=== PATIENT | male | born 1930 | race Caucasian/White ===

== ENCOUNTER 2017-06-12 10:19 | Emergency (ER) | payer BC ==
[2017-06-12 10:43] VITALS: RESP 18; TEMP 97.9
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
[2017-06-12 12:24] VITALS: BP 142/85; PULSE 82; O2SAT 93
== END 2017-06-12 12:24 | disposition home or self-care (01) ==
LOC: EDUNIT#
DX: S09.90XA Unspecified injury of head, initial encounter (principal); S00.01XA Abrasion of scalp, initial encounter; Z86.59 Personal history of other mental and behavioral disorders; W01.198A Fall on same level from slipping, tripping and stumbling with subsequent striking against other object, initial encounter; Y92.89 Other specified places as the place of occurrence of the external cause; Y93.01 Activity, walking, marching and hiking

== ENCOUNTER 2018-06-03 01:49 | Emergency (ER) | payer BC, OTHER ==
[2018-06-03] MEDS ORDERED: NS 1,000 ML IV ONE (02:12)
--- NOTE | 2018-06-03 02:20 | EDPHY ---
H & P Stated Complaint: NVD Time Seen by Provider: 06/03/18 01:56 HPI/ROS: HPI The patient presents with nausea, vomiting, diarrhea which began just after dinner at about 6:00 p.m. Tonight. The patient was feeling well during the day , is here with his daughter who was with him and said he was acting himself. He then developed vomiting which was nonbloody and nonbilious after eating. He had another episode later in the night which was accompanied by diarrhea at approximately 11:00 p.m.. He had fecal incontinence. There was a small amount of red blood, however the rest of it was soft and brown. He has not had any fevers or chills. He does not have any abdominal pain. He resides at a correction where there may be some other residents who have a similar set of symptoms. REVIEW OF SYSTEMS 10 systems were reviewed and negative with the exception of the elements mentioned in the history of present illness. 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 PHYSICAL General Appearance: Alert, no distress Eyes: Pupils equal and round no pallor or injection ENT, Mouth: Mucous membranes dry Respiratory: There are no retractions, lungs are clear to auscultation Cardiovascular: Regular rate and rhythm Gastrointestinal: Abdomen is soft and non-tender, no masses, bowel sounds normal Neurological: A&O, moves all extremities Skin: Warm and dry, no rashes Musculoskeletal: Neck is supple non tender Extremities: symmetrical, full range of motion Psychiatric: Patient is oriented X 3, there is no agitation Source: Patient, Family Exam Limitations: Physical impairment - Personal History Current Tetanus Diphtheria and Acellular Pertussis (TDAP): Yes - Medical/Surgical History Hx Asthma: No Hx Chronic Respiratory Disease: No Hx Diabetes: No Hx Cardiac Disease: No Hx Renal Disease: No Hx Cirrhosis: No Hx Alcoholism: No Hx HIV/AIDS: No Hx Splenectomy or Spleen Trauma: No Other PMH: hypothyroid,dementia,bleeding disorder,arthritis - Social History Smoking Status: Never smoked Constitutional: Initial Vital Signs Temperature (C) 37 C 06/03/18 01:54 Heart Rate 115 H 06/03/18 01:54 Respiratory Rate 16 06/03/18 01:54 Blood Pressure 174/98 H 06/03/18 01:54 O2 Sat (%) 88 L 06/03/18 01:54 O2 Delivery Mode Room Air O2 (L/minute) 2 Allergies/Adverse Reactions: Penicillins Allergy (Verified 06/03/18 01:54) horse serum Allergy (Uncoded 06/03/18 01:54) Home Medications: Medication Instructions Recorded Alendronate Sodium [Fosamax 70 MG 70 mg PO SA@0700 01/03/16 (*)] Levothyroxine [Synthroid 88 mcg 88 mcg PO DAILY06 01/03/16 (*)] Acetaminophen [Tylenol 325mg (*)] 650 mg PO Q4HRS PRN tab 11/12/17 Herbals/Supplements -Info Only 1 ea PO DAILY 11/12/17 Ondansetron Odt [Zofran Odt 4 mg 4 mg PO Q4 PRN #10 tab 06/03/18 (*)] Medical Decision Making - Diagnostics Imaging Results: Chest x-ray two view demonstrates mild cardiomegaly with what appears to be atelectasis at both lung bases, interpreted by me, radiology interpretation is pending. Imaging: I viewed and interpreted images myself Differential Diagnosis: 88-year-old man with dementia who presents brought in by ambulance from a correction with several hours of nausea, vomiting, diarrhea. Here, he is slightly tachycardic as well as slightly hypoxic. His abdominal exam is benign though he does appear clinically dehydrated. Differential diagnosis includes viral gastroenteritis, toxin mediated enterocolitis, electrolyte disturbance, dehydration, less likely appendicitis. Plan for IV fluids, basic labs, chest x-ray given his hypoxia. The patient was given 1 L of IV fluids and was able to tolerate p.o. Challenge without difficulty. Basic labs were mostly unremarkable with slightly elevated BUN of 27. Platelets are slightly low at 110. I performed a rectal exam which demonstrated small amount of brown colored stool with no bleeding or masses palpated. Chest x-ray demonstrates cardiomegaly. I do not have an old chest x-ray for comparison. Daughter knows that the patient has seen a tester operator helper sometime in the past. I have offered him admission to the hospital and further testing, however he and his daughter both decline. The patient has a MOST form with him stating that he is DNR with limited interventions, because of this, if it is his wish to return home, I feel this is reasonable. I will send him home with Zofran. I have given instructions for [facility] for ongoing treatment. I suspect he has a gastroenteritis accompanied by dehydration. I did discuss the patient's hypoxia with his daughter. I explained that he may be a candidate for supplemental oxygen and this will need to be followed up. She says that he would not want to carry oxygen with him most likely, however he may benefit from this at night. - Data Points Laboratory Results: Laboratory Results 06/03/18 01:58 06/03/18 01:58 Medications Given: Discontinued Medications Sodium Chloride (Ns) 1,000 mls @ 0 mls/hr IV ONCE ONE; Wide Open PRN Reason: Protocol Stop: 06/03/18 02:13 Last Admin: 06/03/18 02:14 Dose: 1,000 mls Departure - Departure Disposition: Home, Routine, Self-Care Clinical Impression: Nausea vomiting and diarrhea, Hypoxia Condition: Fair Instructions: Dehydration (ED), Acute Nausea and Vomiting (ED) Additional Instructions: I recommend that he take clear liquids until he is feeling better. He can use Zofran 1 tab every 4-6 hours as needed for nausea and vomiting. It was noted on today's visit that patient's oxygen level was about 88% on room air. If he is having shortness of breath, he should be considered for oxygen. He should return to the emergency department if he is worse in any way. He should see his primary care doctor in 1-2 days for recheck since his oxygen level was slightly low. Referrals: Andi Hernandez MD [Primary Care Provider] - As per Instructions Prescriptions: Ondansetron Odt [Zofran Odt 4 mg (*)] 4 mg PO Q4 PRN #10 tab PRN Reason: Nausea/Vomiting, Can'T Take Po
[2018-06-03 02:36] LABS: PLATELET COUNT 110 10^3/uL (150-400)
[2018-06-03 03:41] VITALS: BP 143/76
== END 2018-06-03 03:41 | disposition home or self-care (01) ==
LOC: EDUNIT#
DX: R11.2 Nausea with vomiting, unspecified (principal); R19.7 Diarrhea, unspecified; R09.02 Hypoxemia; F03.90 Unspecified dementia, unspecified severity, without behavioral disturbance, psychotic disturbance, mood disturbance, and anxiety; E03.9 Hypothyroidism, unspecified; E86.9 Volume depletion, unspecified; Z88.0 Allergy status to penicillin

== ENCOUNTER 2018-08-20 20:37 | Emergency (ER) | payer BC ==
--- NOTE | 2018-08-20 20:48 | EDPHY ---
H & P Stated Complaint: UNWITNESSED FALL AT [facility], DEMENTIA Time Seen by Provider: 08/20/18 20:47 - Personal History Current Tetanus/Diphtheria Vaccine: Unsure Current Tetanus Diphtheria and Acellular Pertussis (TDAP): Unsure - Medical/Surgical History Hx Asthma: No Hx Chronic Respiratory Disease: No Hx Diabetes: No Hx Cardiac Disease: No Hx Renal Disease: No Hx Cirrhosis: No Hx Alcoholism: No Hx HIV/AIDS: No Hx Splenectomy or Spleen Trauma: No Other PMH: hypothyroid,dementia,bleeding disorder,arthritis - Social History Smoking Status: Never smoked Constitutional: Initial Vital Signs Temperature (C) 36.9 C 08/20/18 20:38 Heart Rate 105 H 08/20/18 20:38 Respiratory Rate 18 08/20/18 20:38 Blood Pressure 181/126 H 08/20/18 20:38 O2 Sat (%) 89 L 08/20/18 20:38 O2 Delivery Mode Room Air Allergies/Adverse Reactions: Penicillins Allergy (Verified 08/20/18 20:40) horse serum Allergy (Uncoded 08/20/18 20:40) Home Medications: Medication Instructions Recorded Alendronate Sodium [Fosamax 70 MG 70 mg PO SA@0700 01/03/16 (*)] Levothyroxine [Synthroid 88 mcg 88 mcg PO DAILY06 01/03/16 (*)] Acetaminophen [Tylenol 325mg (*)] 650 mg PO Q4HRS PRN tab 11/12/17 Herbals/Supplements -Info Only 1 ea PO DAILY 11/12/17 Ondansetron Odt [Zofran Odt 4 mg 4 mg PO Q4 PRN #10 tab 06/03/18 (*)] Medical Decision Making - Diagnostics Imaging: Discussed imaging studies w/ director call center sales Radiologist, I viewed and interpreted images myself ED Course/Re-evaluation: CHIEF COMPLAINT: Unwitnessed fall HISTORY OF PRESENT ILLNESS: The patient is an 88 y/o male with a history of frequent falls and dementia arriving with his daughter after an unwitnessed fall today. The patient states "I kind of fell". The nurses at his [place] [facility] facility noted that the patient was complaining of pain and had an abrasion to his back. He is generally unsure of where he hurts, but does have pain to his right ribs when he touches them. No fever, headache, body aches, lightheadedness, chest pain, heart palpitations, shortness of breath, cough, abdominal pain, urinary or bowel complaints, numbness, paresthesias. REVIEW OF SYSTEMS: A comprehensive 10 system review of systems is otherwise negative aside from elements mentioned in the history of present illness and medical decision making. PHYSICAL EXAM: HR, BP, O2 Sat, RR. Temp noted General Appearance: Alert, well hydrated, appropriate, and non-toxic appearing. Head: Atraumatic without scalp tenderness or obvious injury Eyes: Pupils equal, round, reactive to light and accommodation, EOMI, no trauma , no injection. Ears: Clear bilaterally, no perforation, normal landmarks Nose: Atraumatic, no rhinorrhea, clear. Throat: There is no erythema or exudates, no lesions, normal tonsils, mucus membranes moist. Neck: Supple, 2+ carotid upstroke, nontender, no lymphadenopathy. Respiratory: No retractions, no distress, no wheezes, and no accessory muscle use. Lungs are clear to auscultation bilaterally. Cardiovascular: Regular rate and rhythm, no murmurs, rubs, or gallops. Bilateral carotid, radial, dorsalis pedis, and posterior tibial pulses intact. Good capillary refill all extremities. Chest: Tenderness to palpation of his right ribs and chest. Gastrointestinal: Abdomen is soft, nontender, non-distended, no masses, no rebound, no guarding, no peritoneal signs. Musculoskeletal: Normal active ROM of all extremities, atraumatic. Neurological: Alert, appropriate, and interactive. The patient has normal DTRs and non-focal cranial nerves, motor, sensory, and cerebellar exam. Skin: Abrasion to lateral right chest and flank. No rashes, good turgor, no nodules on palpation. Past medical history: Hypothyroid, dementia, bleeding disorder, arthritis, frequent falls Past surgical history: Denies Family history: Denies Social history: Daughter at bedside, retired, resides at [facility] DIAGNOSTICS/PROCEDURES/CRITICAL CARE TIME: Chest CT: Acute right 9th rib fracture. Numerous old and indeterminant rib fractures. Old L2 process fracture. DIFFERENTIAL DIAGNOSIS: The differential diagnosis for the patient's chest pain included but was not limited to abrasion, rib fracture, myocardial ischemia, pulmonary embolus, chest wall pain, pleural inflammation, and pulmonary infectious causes. MEDICAL DECISION MAKING: The patient is an 88 y/o male with a history of frequent falls and dementia arriving with his daughter after an unwitnessed fall today. The patient states "I kind of fell". The nurses at his [place] [facility] facility noted that the patient was complaining of pain and had an abrasion to his back. On exam he has tenderness to palpation of his right ribs and chest as well as an abrasion to the lateral right chest and flank. Chest CT ordered. 2208: I spoke with Dr. Flynn, radiologist, regarding patient's chest CT. There is an acute right 9th rib fracture. Numerous old and indeterminant rib fractures. Old L2 process fracture. 2211: Reassessed patient and discussed imaging findings. Return precautions provided; patient is comfortable with this plan. - Data Points Laboratory Results: 08/20/18 20:50 Urine Color YELLOW Urine Appearance CLEAR Urine pH 7.0 (5.0-7.5) Ur Specific [place] 1.016 (1.002-1.030) Urine Protein NEGATIVE (NEGATIVE) Urine Ketones NEGATIVE (NEGATIVE) Urine Blood NEGATIVE (NEGATIVE) Urine Nitrate NEGATIVE (NEGATIVE) Urine Bilirubin NEGATIVE (NEGATIVE) Urine Urobilinogen NEGATIVE EU EU (0.2-1.0) Ur Leukocyte Esterase NEGATIVE (NEGATIVE) Urine RBC 1-3 /hpf /hpf (0-3) Urine WBC 0-1 /hpf /hpf (0-3) Ur Epithelial Cells NONE SEEN /lpf /lpf (NONE-1+) Urine Glucose NEGATIVE (NEGATIVE) Departure - Departure Disposition: Home, Routine, Self-Care Clinical Impression: Abrasion of chest wall Qualifiers: Encounter type: initial encounter Laterality: right Qualified Code(s): S20.311A - Abrasion of right front wall of thorax, initial encounter Chest wall contusion Qualifiers: Encounter type: initial encounter Laterality: right Qualified Code(s): S20.211A - Contusion of right front wall of thorax, initial encounter Rib fracture Qualifiers: Encounter type: initial encounter Rib fracture type: single rib Fracture type: closed Laterality: right Qualified Code(s): S22.31XA - Fracture of one rib, right side, initial encounter for closed fracture Condition: Good Instructions: Rib Fracture (ED), Contusion in Adults (ED), Chest Wall Pain (ED) Additional Instructions: 1. Followup with your primary doctor within 72 hours for reevaluation. 2. Use incentive spirometer as directed several times daily. 3. Return to the emergency department for fever, worsening pain, shortness of breath or difficulty breathing, abdominal pain, blood in urine or other concerns. Referrals: Andi Hernandez MD [Primary Care Provider] - As per Instructions Report Scribed for: Kwesi Cho Report Scribed by: Iva Oleary Date of Report: 08/20/18 Time of Report: 20:50
[2018-08-20 22:04] VITALS: BP 137/91
== END 2018-08-20 22:24 | disposition home or self-care (01) ==
DX: S22.31XA Fracture of one rib, right side, initial encounter for closed fracture (principal); S20.311A Abrasion of right front wall of thorax, initial encounter; F03.90 Unspecified dementia, unspecified severity, without behavioral disturbance, psychotic disturbance, mood disturbance, and anxiety; E03.9 Hypothyroidism, unspecified; W19.XXXA Unspecified fall, initial encounter; Y92.128 Other place in nursing home as the place of occurrence of the external cause